=== PATIENT | male | born 1985 | race Asian ===

== ENCOUNTER 2020-08-26 00:02 | Emergency (ER) | payer OTHER ==
[~2020-08-26] VITALS: Ht 172.7 cm; Wt 74.8 kg
[2020-08-26 00:19] VITALS: Ht 172.7 cm; Wt 74.8 kg
[2020-08-26 02:29] VITALS: BP 134/91
== END 2020-08-26 02:29 | disposition home or self-care (01) ==
LOC: ED 00:02
DX: M10.071 Idiopathic gout, right ankle and foot (principal)
CPT/HCPCS: J7512; Q0092